=== PATIENT | male | born 1990 | race Caucasian/White ===

== ENCOUNTER 2021-11-17 01:15 | Emergency (ER) | payer MEDICAID ==
[~2021-11-17] VITALS: Ht 172.7 cm; Wt 94.0 kg
[2021-11-17 01:22] VITALS: BP 144/96
[2021-11-17] MEDS ORDERED: TETRACAINE 0.5% OPHTH DROPS 4ML LEFTEYE ONE (02:30)
[2021-11-17] MEDS ORDERED: FLUORESCEIN SODIUM 1MG/STRIP LEFTEYE ONE (02:30)
[2021-11-17] MEDS ORDERED: OFLO5DRO3 LEFTEYE (03:22)
[2021-11-17] MEDS ORDERED: TOPUD MT (03:22)
== END 2021-11-17 04:11 | disposition home or self-care (01) ==
LOC: EDBD 01:15 → ER 01:15
DX: T15.02XA Foreign body in cornea, left eye, initial encounter (principal); X58.XXXA Exposure to other specified factors, initial encounter; Y93.89 Activity, other specified; Y92.89 Other specified places as the place of occurrence of the external cause
CPT/HCPCS: 99284